=== PATIENT | male | born 1990 | race Caucasian/White ===

== ENCOUNTER 2018-01-21 17:40 | Emergency (ER) | payer MEDICAID ==
[~2018-01-21] VITALS: Ht 190.5 cm; Wt 81.6 kg
--- NOTE | 2018-01-21 17:54 | NUR ---
Dr Draper at the bedside for MSE.
--- NOTE | 2018-01-21 17:56 | NUR ---
Sutured removed by MD, pt tolorated well.
[2018-01-21 18:04] VITALS: BP 105/64
--- NOTE | 2018-01-21 18:04 | NUR ---
Patient discharged to home in stable conditon. Written and verbal after care instructions given. Patient verbalizes understanding of instructions.
== END 2018-01-21 18:05 | disposition home or self-care (01) ==
LOC: ER 17:45
DX: S70.01XA Contusion of right hip, initial encounter (principal); S01.112D Laceration without foreign body of left eyelid and periocular area, subsequent encounter; Z48.02 Encounter for removal of sutures; X58.XXXA Exposure to other specified factors, initial encounter; Y93.89 Activity, other specified; Y92.89 Other specified places as the place of occurrence of the external cause; Y99.8 Other external cause status
CPT/HCPCS: 99281; A4663